=== PATIENT | male | born 1965 | race Caucasian/White ===

== ENCOUNTER 2020-05-04 00:41 | Emergency (ER) | payer MEDICAID ==
[~2020-05-04] VITALS: Ht 177.8 cm; Wt 77.0 kg
[2020-05-04 00:46] VITALS: BP 134/88
--- NOTE | 2020-05-04 00:53 | NUR ---
PER [facility] PT IS UNABLE TO AMBULATE. PT DOES NOT WANT TO BE HERE, IS EASILY REORIENTED TO TAKE A NAP. NO HEAD TRAUMA NOTED. PT CONNECTED TO BP, AND O2 MONITORS, BED RAILS UP X2, CALL LIGHT IN REACH. URINAL IN REACH.
--- NOTE | 2020-05-04 01:23 | NUR ---
Pt sleeping on gurney. Rr even and unlabored. Clarence. HERMANN.
--- NOTE | 2020-05-04 03:44 | NUR ---
PT HAS BEEN OUT OF BED MULTIPLE TIMES WITH UNSTEADY GAIT. CONTINUALLY REEDUCATED BY THIS RN AND OTHERS TO STAY IN BED AND SLEEP. PT IS SEXUALLY INAPPROPRIATE AND MAKING STATEMENTS ABOUT WANTING TO LEAVE. PT CONTINUALLY HELPED BACK TO BED.
== END 2020-05-04 05:37 | disposition home or self-care (01) ==
LOC: EDBD 00:41 → ED 01:10
DX: F10.220 Alcohol dependence with intoxication, uncomplicated (principal); Y90.0 Blood alcohol level of less than 20 mg/100 ml
CPT/HCPCS: 99283